=== PATIENT | female | born 1980 | race Caucasian/White ===

== ENCOUNTER → 2019-08-18 | Outpatient (CLI) | payer BC | LOC: MC.RAD 14:54 | DX: Z12.31 Encounter for screening mammogram for malignant neoplasm of breast (principal) ==

== ENCOUNTER → 2021-10-02 | Outpatient (CLI) | payer BC | LOC: MC.RAD 08:47 | DX: Z12.31 Encounter for screening mammogram for malignant neoplasm of breast (principal) ==

== ENCOUNTER → 2023-08-08 | Outpatient (CLI) | payer BC | LOC: MC.RAD 13:07 | DX: Z12.31 Encounter for screening mammogram for malignant neoplasm of breast (principal) ==

== ENCOUNTER 2023-10-22 14:29 | Inpatient (IN) | payer BC ==
[~2023-10-22] VITALS: Ht 180.3 cm; Wt 78.9 kg
[2023-10-22] MEDS ORDERED: LORazepam 2 MG/ML 1 ML VIAL IV ONE (15:15)
[2023-10-22 15:33] LABS: BASO % 0.6 % (0.0-2.0); EOS # 0.1 K/mm3 (0.0-0.7); EOS % 1.9 % (0.0-4.0); GRAN # 3.5 K/mm3 (1.4-6.5); GRAN % 65.9 % (42.2-75.2); HEMATOCRIT 37.1 % (37.0-47.0); HEMOGLOBIN 12.4 g/dl (12.5-16.0); LYMPH # 1.3 K/mm3 (1.2-3.4); MEAN CELL VOLUME 94 fl (80.0-100.0); MEAN CORPUSCULAR HEMOGLOBIN 32 pg (27-31); MEAN CORPUSCULAR HGB CONC 33 g/dl (33.0-37.0); MONO # 0.3 K/mm3 (0.1-0.6); MONO % 6.2 % (1.7-9.3); PLATELET COUNT 177 K/mm3 (130-400); RED BLOOD COUNT 3.94 M/mm3 (4.10-5.30); REDCELL DISTRIBUTION WIDTH-CV 12.2 % (11.5-14.5)
[2023-10-22 15:41] LABS: PROTHROMBIN TIME 11.3 SECONDS (9.7-12.8)
[2023-10-22 16:02] LABS: BILIRUBIN,TOTAL 0.3 mg/dL (0.2-1.2); CALCIUM 9.6 mg/dL (8.4-10.2); CREATININE, serum 0.86 mg/dL (0.57-1.11); POTASSIUM 4.3 mmol/L (3.5-4.5); TOTAL PROTEIN 7.5 gm/dL (6.2-8.1)
[2023-10-22 16:07] LABS: TROPONIN-I 0.014 ng/mL (0.00-0.033)
[2023-10-22] MEDS ORDERED: PRILOSEC 20MG20 MG PO (16:31)
[2023-10-22] MEDS ORDERED: TRELEGY ELLIPT1 EACH IH (16:33)
[2023-10-22 16:40] VITALS: BP 151/82; PULSE 89; TEMP 97.9
--- NOTE | 2023-10-22 16:40 | NUR ---
PATIENT ARRIVED VIA COT WITH LANDSCAPE ARCHITECTRUI. PATIENT NOT IN DISTRESS UPON ARRIVAL. PATIENT AMBULATED TO BED AT TRANSFER.
[2023-10-22] MEDS ORDERED: Acetaminophen 500 MG TAB PO PRN (16:45)
[2023-10-22] MEDS ORDERED: Ondansetron 4 MG/2 ML VIAL IV PRN (16:45)
[2023-10-22] MEDS ORDERED: MULTIPLE VITAMI1 CAP PO (17:10)
[2023-10-22] MEDS ORDERED: VITAMIN D31000 I1 PO (17:10)
[2023-10-22] MEDS ORDERED: Cholecalciferol (Vit D3) 1000 Units TAB PO SCH (17:41)
[2023-10-22] MEDS ORDERED: Multivitamin TAB PO SCH (17:41)
--- NOTE | 2023-10-22 18:19 | NUR ---
PATIENT DOES NOT APPEAR TO BE IN DISCOMFORT OR DISTRESS AT THIS TIME. DENIES PAIN. ONLY PRESENT SYMPTOM IS A COUGH. AT BEDSIDE. BED IN LOW POSITION AND CALL LIGHT WITHIN REACH. PATIENT/FAMILY DOES NOT HAVE ANY QUESTIONS AT THIS TIME. PATIENT AND SPOUSE WERE INFORMED OF PLAN TO HAVE VENOUS DOPPLER AND ECHO TOMORROW.
[2023-10-22 20:00] VITALS: BP 127/101; PULSE 89; TEMP 98.2
[2023-10-22 21:25] VITALS: O2SAT 96
[2023-10-23] VITALS (236 sets, daily range): BP systolic 102–148; BP diastolic 82–93; PULSE 71–96; TEMP 97.9–98.5; O2SAT 93–100
--- NOTE | 2023-10-23 07:00 | NUR ---
Report received from MANPREET Gil. Pt had uneventful night. No IV gtts infusing. Pt waiting on ECHO and venous dopplar today. Pt resting in bed with eyes closed. Will continue with POC.
[2023-10-23] MEDS ORDERED: PROAIR HFA0.09 MG/AC IH (07:53)
[2023-10-23] MEDS ORDERED: BENTYL 10MG10 MG/CAP PO (07:54)
[2023-10-23] MEDS ORDERED: MELATIN 3 MG-11 TAB PO (08:49)
--- NOTE | 2023-10-23 10:07 | NUR ---
Initial visit: Patient thanked [employer] for stopping and offering Spiritual Care though declined. Patient thanked [employer] for stopping.
--- NOTE | 2023-10-23 11:24 | NUR ---
process worker met with pt and , Gissell [phone] at bedside to discuss discharge planning. Pt reports she lives with her in [place]. She sees Dr. Noel and obtains medications from [facility] with no difficulties. She reports to be independent with ADLS and uses no DME. Pt does not have a DPOA-HC and declined one at this time. SW states that PT signed off due to independence. Pt intends to return home upon discharge. Discharge Plan: home
--- NOTE | 2023-10-23 13:01 | NUR ---
Pt HR increased to the 150s. Rhythm looked like afib/aflutter. EKG ordered. Pt back in sinus within a couple of minutes. Vital signs are stable. Pt states she feel her heart fluttering. EKG ordered, however, pt remains in sinus rhythm. Tele strip printed off. Dr. Bustamante notified.
[2023-10-23] MEDS ORDERED: Amiodarone 200 MG TAB PO SCH (14:15)
--- NOTE | 2023-10-23 19:10 | NUR ---
Received report from MANPREET Napier. Pt is lying in bed with family and friends at bedside. Call light is within reach. Pt's vitals are stable at this time. Pt not on drips at this time. Will continue with pt care.
[2023-10-23] MEDS ORDERED: Melatonin 3 MG TAB PO SCH (21:00)
[2023-10-23] MEDS ORDERED: Metoprolol Tartrate 5 MG/5 ML VIAL IV ONE (21:00)
[2023-10-24] VITALS (57 sets, daily range): BP systolic 110–121; BP diastolic 71–74; PULSE 67; TEMP 97.7–98; O2SAT 94–100
--- NOTE | 2023-10-24 06:34 | NUR ---
Pt flipped into aflutter around 10/22 when the pt got up to go to the bathroom. Hospitalist was notified and 2.5 of IV lopressor was given and the rhythm went back to sinus rhythm after it was given. Pt has been sinus since then. BP was stable throughout the night as well. Other vitals were also stable. Pt slept most of the night. Pt is oriented and has no drips running at this time. Pt is currently sleeping in bed with the call light within reach.
[2023-10-24] MEDS ORDERED: Apixaban 5 MG TAB PO SCH (06:54)
--- NOTE | 2023-10-24 08:15 | NUR ---
Alert and oriented and resting in bed. Denies any shortness of air. Reports a mild headache, but denied offer for tylenol. VS stable. Will continue to monitor.
[2023-10-24] MEDS ORDERED: PACERONE400 MG PO (09:04)
[2023-10-24] MEDS ORDERED: ELIQUIS 5MG PO (09:05)
--- NOTE | 2023-10-24 10:08 | NUR ---
PATIENT AMBULATED 500 FT ON RA WITH SP02 RANING FROM 98-99%
--- NOTE | 2023-10-24 10:22 | NUR ---
yarn worker attended clinical rounding and was informed pt can discharge today. Discharge Plan: home
--- NOTE | 2023-10-24 10:57 | NUR ---
Discharge packet reviewed with patient and family; all questions and concerns addressed at this time. IV removed and assisted out to ER entrance. Discharged with family.
== END 2023-10-24 10:57 | disposition home or self-care (01) | DRG 176 ==
LOC: COL.ER 14:29 → ICU 14:58
PROVIDERS: Physician Assistant; ADMIT Internal Medicine
DX: I26.92 Saddle embolus of pulmonary artery without acute cor pulmonale (principal); I48.92 Unspecified atrial flutter; I82.412 Acute embolism and thrombosis of left femoral vein; I82.432 Acute embolism and thrombosis of left popliteal vein; K21.9 Gastro-esophageal reflux disease without esophagitis; I48.0 Paroxysmal atrial fibrillation; Z88.0 Allergy status to penicillin; Z88.2 Allergy status to sulfonamides; Z88.8 Allergy status to other drugs, medicaments and biological substances; Z79.899 Other long term (current) drug therapy; Z87.891 Personal history of nicotine dependence; Z23 Encounter for immunization
CPT/HCPCS: J1650

== ENCOUNTER → 2023-10-22 | Outpatient (CLI) | payer BC ==
[~2023-10-22] MED LIST: BENTYL 10MG10 MG/CAP PO; ELIQUIS 5MG PO; Iohexol 300 - 100 ML VIAL IV ONE; MELATIN 3 MG-11 TAB PO; MULTIPLE VITAMI1 CAP PO; NS 100 ML IV SCH; PACERONE400 MG PO; PRILOSEC 20MG20 MG PO; PROAIR HFA0.09 MG/AC IH; TRELEGY ELLIPT1 EACH IH; VITAMIN D31000 I1 PO
== END ==
LOC: COL.RAD 13:29
DX: I26.99 Other pulmonary embolism without acute cor pulmonale (principal); R91.8 Other nonspecific abnormal finding of lung field; R79.89 Other specified abnormal findings of blood chemistry
CPT/HCPCS: Q9967